=== PATIENT | female | born 1980 | race Caucasian/White ===

== ENCOUNTER → 2019-04-15 | Outpatient (REF) | payer BC, OTHER | LOC: M LAB LCGH 11:45 | PROVIDERS: ATTEND Nurse Practitioner Family | DX: Z12.4 Encounter for screening for malignant neoplasm of cervix (principal) ==

== ENCOUNTER → 2021-05-11 | Outpatient (CLI) | payer SELFPAY | LOC: M LABSMTC 13:11 | PROVIDERS: ATTEND Pediatrics | DX: Z20.822 Contact with and (suspected) exposure to COVID-19 (principal) ==

== ENCOUNTER → 2021-08-29 | Outpatient (REF) | payer OTHER | LOC: M SFHCDERM 14:18 | PROVIDERS: ATTEND Physician Assistant | DX: D23.62 Other benign neoplasm of skin of left upper limb, including shoulder (principal) ==